=== PATIENT | female | born 1990 | race Caucasian/White ===

== ENCOUNTER 2020-12-20 09:37 | Emergency (ER) | payer MEDICAID ==
[~2020-12-20] VITALS: Ht 167.6 cm; Wt 81.8 kg
[~2020-12-20 09:37] MED LIST: CYCL-1 PO; CYCL-394 PO; IBUP-1984 PO; PHEN-786 PO; SULF5DRO LEFTEYE
[2020-12-20] MEDS ORDERED: ESCI5TAB PO (10:20)
[2020-12-20] MEDS ORDERED: HYDR25CA PO (10:20)
[2020-12-20 10:27] LABS: BASOPHILS % (AUTO) 0.8 % (0-1); EOSINOPHILS # (AUTO) 0.1 X10'3 (0-0.9); EOSINOPHILS % (AUTO) 2.1 % (0-6); HEMATOCRIT 38.4 % (35.0-45.0); HEMOGLOBIN 12.9 g/dl (12.0-16.0); LYMPHOCYTES # (AUTO) 2.2 X10'3 (1.1-4.8); LYMPHOCYTES % (AUTO) 39.8 % (21-51); MEAN CORPUSCULAR HEMOGLOBIN 28.2 PG (27.0-31.0); MEAN CORPUSCULAR HGB CONC 33.5 g/dL (33.0-36.5); MEAN CORPUSCULAR VOLUME 84.2 FL (78-98); MEAN PLATELET VOLUME 8.5 FL (7.4-10.4); MONOCYTES # (AUTO) 0.4 X10'3 (0-0.9); MONOCYTES % (AUTO) 7.9 % (2-12); NEUTROPHILS # (AUTO) 2.7 X10'3 (1.8-7.7); NEUTROPHILS % (AUTO) 49.4 % (42-75); PLATELET COUNT 179 X10'3 (140-440); RED BLOOD COUNT 4.56 X10'6 (4.20-5.60); RED CELL DISTRIBUTION WIDTH 13.5 % (11.5-14.5); WHITE BLOOD COUNT 5.4 X10'3 (4.5-11.0)
[2020-12-20 10:41] LABS: ALANINE AMINOTRANSFERASE 63 U/L (12-78); ALBUMIN 3.8 G/DL (3.4-5.0); ALKALINE PHOSPHATASE 59 IU/L (46-116); ANION GAP 10 (8-16); ASPARTATE AMINO TRANSFERASE 33 U/L (10-37); BILIRUBIN,TOTAL 0.2 MG/DL (0.1-1.0); BLOOD UREA NITROGEN 16 MG/DL (7-18); BUN/CREATININE RATIO 12.2 (6.6-38.0); CALCIUM 9.3 MG/DL (8.5-10.1); CHLORIDE 108 MMOL/L (99-107); CREATININE 1.31 MG/DL (0.40-0.90); GLUCOSE 103 MG/DL (70-104); LIPASE 245 U/L (73-393); POTASSIUM 3.8 MMOL/L (3.5-5.1); SODIUM 144 MMOL/L (135-145); TOTAL CARBON DIOXIDE 26.1 MMOL/L (24-32); TOTAL PROTEIN 7.7 G/DL (6.4-8.2); eGFR 47 ML/MIN
[2020-12-20 10:43] LABS: CLARITY,URINE CLOUDY (Clear); COLOR,URINE YELLOW (Yellow); GLUCOSE, URINE NEGATIVE (Neg); KETONES,URINE NEGATIVE (Neg); LEUKOCYTE ESTERASE ,URINE NEGATIVE (Neg); NITRITES, URINE NEGATIVE (Neg); OCCULT BLOOD,URINE NEGATIVE (Neg); PROTEIN,URINE NEGATIVE (Neg); UA COLLECTION TYPE CLN CATCH MIDSTREAM
[2020-12-20 10:51] LABS: URINE HCG NEGATIVE (NEG)
[2020-12-20 11:04] LABS: MUCUS STRANDS MODERATE /LPF (Neg); SQUAMOUS EPITHELIAL CELL,UR MANY /LPF (FEW)
[2020-12-20 11:05] LABS: BACTERIA,URINE 2+ /HPF (Neg); RBC,URINE 0-2 /HPF (0-2); WBC,URINE 0-4 /HPF (0-4)
[2020-12-20 11:09] LABS: HCG SERUM QL NEGATIVE
[2020-12-20 11:25] VITALS: BP 124/82
[2020-12-20] MEDS ORDERED: albuterol 2.5 MG/3 ML nebule NEB ONE (11:50)
== END 2020-12-20 12:42 | disposition home or self-care (01) ==
LOC: ER 09:38
DX: R10.31 Right lower quadrant pain (principal); R10.32 Left lower quadrant pain; G89.29 Other chronic pain; Z87.440 Personal history of urinary (tract) infections; Z79.899 Other long term (current) drug therapy
CPT/HCPCS: 36415; 74176; 80053; 81001; 81025; 83690; 84703; 85025; 99284

== ENCOUNTER → 2021-02-21 | Emergency (ER) | payer SELFPAY ==
[~2021-02-21] VITALS: Ht 167.6 cm; Wt 76.6 kg
[~2021-02-21] MED LIST changes: -CYCL-1 PO; -CYCL-394 PO; +ESCI5TAB PO; +HYDR25CA PO; -IBUP-1984 PO; -PHEN-786 PO; -SULF5DRO LEFTEYE
[2021-02-21 11:56] VITALS: BP 126/81
== END | disposition home or self-care (01) ==
LOC: ER 11:31
DX: S83.92XA Sprain of unspecified site of left knee, initial encounter (principal); M25.562 Pain in left knee; R53.1 Weakness; G89.29 Other chronic pain; F41.9 Anxiety disorder, unspecified; F32.9 Major depressive disorder, single episode, unspecified; Z87.440 Personal history of urinary (tract) infections; Z98.890 Other specified postprocedural states; Z79.899 Other long term (current) drug therapy; W19.XXXA Unspecified fall, initial encounter; Y93.89 Activity, other specified; Y92.89 Other specified places as the place of occurrence of the external cause; Y99.8 Other external cause status
CPT/HCPCS: 29505; 73564; 99283

== ENCOUNTER 2021-08-05 09:25 | Inpatient (IN) | payer MEDICAID, OTHER ==
[~2021-08-05] VITALS: Ht 167.6 cm; Wt 68.2 kg
[2021-08-05] MEDS ORDERED: ibuprofen tablet 400 MG TABLET PO ONE (12:10)
[2021-08-05] MEDS ORDERED: acetaminophen 325mg tablet PO ONE (12:10)
[2021-08-05] MEDS ORDERED: normal saline 1000ML IV soln IVB ONE ×2 (12:20)
[2021-08-05 12:35] LABS: BASOPHILS % (AUTO) 0.2 % (0-1); EOSINOPHILS % (AUTO) 0 % (0-6); HEMATOCRIT 37.4 % (35.0-45.0); HEMOGLOBIN 12.6 g/dl (12.0-16.0); LYMPHOCYTES # (AUTO) 0.7 X10'3 (1.1-4.8); LYMPHOCYTES % (AUTO) 6.4 % (21-51); MEAN CORPUSCULAR HEMOGLOBIN 27.1 PG (27.0-31.0); MEAN CORPUSCULAR HGB CONC 33.8 g/dL (33.0-36.5); MEAN PLATELET VOLUME 8.7 FL (7.4-10.4); MONOCYTES # (AUTO) 0.9 X10'3 (0-0.9); MONOCYTES % (AUTO) 8.5 % (2-12); NEUTROPHILS # (AUTO) 9.5 X10'3 (1.8-7.7); NEUTROPHILS % (AUTO) 84.9 % (42-75); PLATELET COUNT 195 X10'3 (140-440); RED BLOOD COUNT 4.67 X10'6 (4.20-5.60); RED CELL DISTRIBUTION WIDTH 14.2 % (11.5-14.5); WHITE BLOOD COUNT 11.1 X10'3 (4.5-11.0)
[2021-08-05 12:54] LABS: ALANINE AMINOTRANSFERASE 79 U/L (12-78); ALBUMIN 3.7 G/DL (3.4-5.0); ALBUMIN/GLOBULIN RATIO 0.7 (1.1-1.5); ALKALINE PHOSPHATASE 159 IU/L (46-116); ANION GAP 12 (8-16); ASPARTATE AMINO TRANSFERASE 32 U/L (10-37); BILIRUBIN,TOTAL 1.4 MG/DL (0.1-1.0); BLOOD UREA NITROGEN 9 MG/DL (7-18); BUN/CREATININE RATIO 7.2 (6.6-38.0); CALCIUM 8.8 MG/DL (8.5-10.1); CHLORIDE 97 MMOL/L (99-107); CREATININE 1.25 MG/DL (0.40-0.90); GLUCOSE 102 MG/DL (70-104); POTASSIUM 3.3 MMOL/L (3.5-5.1); SODIUM 134 MMOL/L (135-145); TOTAL CARBON DIOXIDE 24.9 MMOL/L (24-32); TOTAL PROTEIN 8.8 G/DL (6.4-8.2); eGFR 50 ML/MIN
[2021-08-05 13:27] LABS: HCG SERUM QL NEGATIVE
[2021-08-05] MEDS ORDERED: CIPR-202 PO (14:13)
[2021-08-05] MEDS ORDERED: CefTRIAXone 2gm/D5W 50ml BAG 50 ML IV ONE (14:15)
[2021-08-05 14:31] LABS: CLARITY,URINE CLOUDY (Clear); COLOR,URINE DARK YELLOW (Yellow); GLUCOSE, URINE NEGATIVE (Neg); KETONES,URINE NEGATIVE (Neg); LEUKOCYTE ESTERASE ,URINE LARGE (Neg); NITRITES, URINE POSITIVE (Neg); OCCULT BLOOD,URINE LARGE (Neg); PROTEIN,URINE 30 mg/dl (Neg); UA COLLECTION TYPE CLN CATCH MIDSTREAM; UROBILINOGEN,URINE >=8.0 E.U/dL (0.2-1.0)
[2021-08-05 14:35] LABS: BACTERIA,URINE 4+ /HPF (Neg); MUCUS STRANDS NONE SEEN /LPF (Neg); RBC,URINE 20-50 /HPF (0-2); SQUAMOUS EPITHELIAL CELL,UR FEW /LPF (FEW); WBC CLUMPS,URINE MODERATE /HPF (NEGATIVE); WBC,URINE TNTC /HPF (0-4)
[2021-08-05] MEDS ORDERED: mag hydrox/Alum hydrox/simeth 30ml oral suspension PO PRN (16:05)
[2021-08-05] MEDS ORDERED: HYDROcodone/acetaminophen 5mg/325mg tablet PO PRN (16:05)
[2021-08-05] MEDS ORDERED: acetaminophen 325mg tablet PO PRN (16:05)
[2021-08-05] MEDS ORDERED: ondansetron/PF 4mg/2ml inj IV PRN (16:05)
[2021-08-05] MEDS ORDERED: metoclopramide 5 mg/ml inj IV PRN (16:05)
[2021-08-05] MEDS ORDERED: magnesium hydroxide 30ml (MOM) UD suspension PO PRN (16:05)
[2021-08-05] MEDS ORDERED: morphine 2 MG/ML inj. syringe IV PRN ×2 (16:05)
[2021-08-05] MEDS ORDERED: HYDROcodone/acetaminophen 10/325mg tab PO PRN (16:05)
[2021-08-05] MEDS: acetaminophen 325mg tablet PO PRN ×2 (18:59→20:22)
[2021-08-05] MEDS: normal saline 1000ml 1,000 ML IV SCH (19:00)
[2021-08-05] MEDS: docusate sod 100mg capsule PO SCH ×2 (20:00→20:22)
[2021-08-05] MEDS ORDERED: ketorolac tromethamine 15mg/ml inj. IV ONE (20:40)
--- NOTE | 2021-08-06 00:50 | NUR ---
ordered ekg due to pt's elevated heart rate
--- NOTE | 2021-08-06 01:16 | NUR ---
CALLED DR MATHUR CONCERNING PT'S ELEVATED HEART RATE. DR MATHUR WILL PUT IN A TOX SCREEN
[2021-08-06] MEDS ORDERED: atenolol 25mg tablet PO ONE (01:20)
[2021-08-06] MEDS ORDERED: ALPRAZolam 0.25mg tablet PO ONE (01:20)
[2021-08-06] MEDS: acetaminophen 325mg tablet PO PRN (01:42)
--- NOTE | 2021-08-06 01:52 | NUR ---
pt now febrile at 101.7. given tylenol. will reevaluate
[2021-08-06] MEDS: normal saline 1000ml 1,000 ML IV SCH (02:02)
--- NOTE | 2021-08-06 03:02 | NUR ---
PT SLEEPING COMFORTABLY. EASILY AWAKEN WHEN I WALK IN ROOM. HEART RATE IS BEGINNING TO SLOW DOWN S/P MEDICATION. WILL CONTINUE TO MONITOR BP
[2021-08-06] MEDS: docusate sod 100mg capsule PO SCH (07:22)
[2021-08-06] MEDS ORDERED: CefTRIAXone/D5W-Rocephin 1gm 50 ML IV SCH (08:00)
[2021-08-06 08:44] VITALS: BP 96/43
[2021-08-06 08:53] LABS: BASOPHILS % (AUTO) 0.1 % (0-1); EOSINOPHILS % (AUTO) 0.1 % (0-6); HEMATOCRIT 27.4 % (35.0-45.0); LYMPHOCYTES # (AUTO) 0.8 X10'3 (1.1-4.8); LYMPHOCYTES % (AUTO) 8.7 % (21-51); MEAN CORPUSCULAR HEMOGLOBIN 26.6 PG (27.0-31.0); MEAN CORPUSCULAR VOLUME 80.5 FL (78-98); MEAN PLATELET VOLUME 9.1 FL (7.4-10.4); MONOCYTES # (AUTO) 1.2 X10'3 (0-0.9); MONOCYTES % (AUTO) 12.1 % (2-12); NEUTROPHILS # (AUTO) 7.6 X10'3 (1.8-7.7); PLATELET COUNT 123 X10'3 (140-440); RED CELL DISTRIBUTION WIDTH 14.8 % (11.5-14.5); WHITE BLOOD COUNT 9.7 X10'3 (4.5-11.0)
[2021-08-06 08:57] LABS: URINE AMPHETAMINE SCREEN NEGATIVE (Neg); URINE BARBITUATE SCREEN NEGATIVE (Neg); URINE BENZODIAZEPINES SCREEN POSITIVE (Neg); URINE CANNABINOID SCREEN NEGATIVE (Neg); URINE COCAINE SCREEN NEGATIVE (Neg); URINE METHADONE SCREEN NEGATIVE (Neg); URINE OPIATE SCREEN NEGATIVE (Neg); URINE PHENCYCLIDINE SCREEN NEGATIVE (Neg)
[2021-08-06 09:02] LABS: BLOOD UREA NITROGEN 9 MG/DL (7-18); BUN/CREATININE RATIO 9.1 (6.6-38.0); CHLORIDE 107 MMOL/L (99-107); CREATININE 0.99 MG/DL (0.40-0.90); GLUCOSE 103 MG/DL (70-104); POTASSIUM 3.4 MMOL/L (3.5-5.1); SODIUM 138 MMOL/L (135-145); eGFR 65 ML/MIN
[2021-08-06 09:04] LABS: ALBUMIN 2.3 G/DL (3.4-5.0); ANION GAP 10 (8-16); CALCIUM 7.6 MG/DL (8.5-10.1)
[2021-08-06] MEDS ORDERED: LEVO500T90 PO (09:11)
--- NOTE | 2021-08-08 16:25 | NUR ---
PT WAS DC ON 08/06. DC PAPERWORK AND RX FOUND ON THE CLIP BOARD. ATTEMPTED TO CALL PT, UNABLE TO LEAVE A MSG DO TO VOICE MAIL HAD NOT BEEN SET UP ON PT'S PHONE.
== END 2021-08-06 09:03 | disposition home or self-care (01) | DRG 720 ==
LOC: ER 09:26 → ED HOLD 16:10
PROVIDERS: ADMIT Internal Medicine; ATTEND Internal Medicine
DX: A41.9 Sepsis, unspecified organism (principal); N17.9 Acute kidney failure, unspecified; D64.9 Anemia, unspecified; B96.89 Other specified bacterial agents as the cause of diseases classified elsewhere; N10 Acute pyelonephritis; Z20.822 Contact with and (suspected) exposure to COVID-19; F17.200 Nicotine dependence, unspecified, uncomplicated; F32.A Depression, unspecified; F41.9 Anxiety disorder, unspecified; G89.29 Other chronic pain; Z79.899 Other long term (current) drug therapy
CPT/HCPCS: 36415; 71045; 80048; 80053; 80305; 81001; 83605; 84145; 84703; 85025; 87040; 87077; 87088; 87186; 87635; 93005; 96361; 96365; 96366; 99285; C9803; G0378; J0696; J1885; J7030

== ENCOUNTER 2023-02-26 10:19 | Emergency (ER) | payer MEDICAID ==
[~2023-02-26] VITALS: Ht 167.6 cm; Wt 75.0 kg
[2023-02-26 11:03] LABS: ALANINE AMINOTRANSFERASE 39 U/L (12-78); ALBUMIN 4.1 G/DL (3.4-5.0); ALBUMIN/GLOBULIN RATIO 1.2 (1.1-1.5); ALKALINE PHOSPHATASE 71 IU/L (46-116); ANION GAP 9 (8-16); ASPARTATE AMINO TRANSFERASE 22 U/L (10-37); BILIRUBIN,TOTAL 0.4 MG/DL (0.1-1.0); BLOOD UREA NITROGEN 17 MG/DL (7-18); BUN/CREATININE RATIO 15.5 (10.0-20.0); CALCIUM 8.5 MG/DL (8.5-10.1); CHLORIDE 103 MMOL/L (99-107); GLUCOSE 122 MG/DL (70-104); POTASSIUM 3.6 MMOL/L (3.5-5.1); SODIUM 137 MMOL/L (135-145); TOTAL CARBON DIOXIDE 24.8 MMOL/L (24-32); TOTAL PROTEIN 7.5 G/DL (6.4-8.2); eGFR 57 ML/MIN
[2023-02-26 11:14] LABS: MAGNESIUM 2.1 MG/DL (1.5-2.4)
[2023-02-26 11:24] LABS: BASOPHILS % (AUTO) 0.6 % (0-1); EOSINOPHILS # (AUTO) 0.1 X10'3 (0-0.9); EOSINOPHILS % (AUTO) 1.1 % (0-6); HEMATOCRIT 34.4 % (35.0-45.0); LYMPHOCYTES # (AUTO) 2.1 X10'3 (1.1-4.8); MEAN CORPUSCULAR HEMOGLOBIN 23.7 PG (27.0-31.0); MEAN CORPUSCULAR VOLUME 74.3 FL (78-98); MEAN PLATELET VOLUME 8.8 FL (7.4-10.4); MONOCYTES # (AUTO) 0.4 X10'3 (0-0.9); MONOCYTES % (AUTO) 6.8 % (2-12); NEUTROPHILS # (AUTO) 2.7 X10'3 (1.8-7.7); NEUTROPHILS % (AUTO) 51.5 % (42-75); PLATELET COUNT 203 X10'3 (140-440); RED BLOOD COUNT 4.63 X10'6 (4.20-5.60); RED CELL DISTRIBUTION WIDTH 21.3 % (11.5-14.5); WHITE BLOOD COUNT 5.2 X10'3 (4.5-11.0)
[2023-02-26 12:50] LABS: PLATELET ESTIMATE NORMAL
[2023-02-26 12:51] LABS: ANISOCYTOSIS 3+; ELLIPTOCYTES FEW; MICROCYTOSIS 1+
[2023-02-26 12:57] VITALS: BP 11/92
== END 2023-02-26 12:59 | disposition home or self-care (01) ==
LOC: ER 10:19
DX: R07.89 Other chest pain (principal); G89.29 Other chronic pain; F41.9 Anxiety disorder, unspecified; F32.9 Major depressive disorder, single episode, unspecified; Z98.890 Other specified postprocedural states; Z79.899 Other long term (current) drug therapy
CPT/HCPCS: 36415; 71045; 80053; 83735; 83880; 84484; 85008; 85025; 93005; 99285

== ENCOUNTER 2023-08-13 10:54 | Emergency (ER) | payer MEDICAID ==
[~2023-08-13] VITALS: Ht 167.6 cm; Wt 77.7 kg
[2023-08-13] MEDS ORDERED: ondansetron/PF 4mg/2ml inj IV ONE (14:35)
[2023-08-13] MEDS ORDERED: morphine 2 MG/ML inj. syringe IV PRN (14:35)
[2023-08-13 15:01] VITALS: BP 116/69; PULSE 97; RESP 15; TEMP 98.1; O2SAT 99
[2023-08-13] MEDS ORDERED: iohexol 300mg/ml 100ml inj. ONE (15:01)
--- NOTE | 2023-08-13 15:03 | NUR ---
PT REFUSES IV AT THIS TIME. RN WILL NOTIFY DR PAUL.
--- NOTE | 2023-08-13 15:08 | NUR ---
RN COMPLETED OFFICIAL ASSESSMENT AT THIS TIME FOR LEARNING PURPOSES OF OCTAVIO MICHAELS RN.
--- NOTE | 2023-08-13 15:15 | NUR ---
PT REFUSES ALL TESTS AT THIS TIME BUT AGREES TO A URINE TEST.
[2023-08-13 15:19] LABS: BASOPHILS % (AUTO) 0.7 % (0-1); EOSINOPHILS # (AUTO) 0.1 X10'3 (0-0.9); EOSINOPHILS % (AUTO) 0.9 % (0-6); HEMOGLOBIN 10.4 g/dl (12.0-16.0); LYMPHOCYTES # (AUTO) 2.5 X10'3 (1.1-4.8); MEAN CORPUSCULAR HEMOGLOBIN 22.5 PG (27.0-31.0); MEAN CORPUSCULAR HGB CONC 31.5 g/dL (33.0-36.5); MEAN CORPUSCULAR VOLUME 71.6 FL (78-98); MEAN PLATELET VOLUME 8.7 FL (7.4-10.4); MONOCYTES # (AUTO) 0.5 X10'3 (0-0.9); MONOCYTES % (AUTO) 9.2 % (2-12); NEUTROPHILS # (AUTO) 2.4 X10'3 (1.8-7.7); NEUTROPHILS % (AUTO) 44.2 % (42-75); PLATELET COUNT 222 X10'3 (140-440); RED BLOOD COUNT 4.61 X10'6 (4.20-5.60); RED CELL DISTRIBUTION WIDTH 15.6 % (11.5-14.5); WHITE BLOOD COUNT 5.5 X10'3 (4.5-11.0)
[2023-08-13 15:37] LABS: ALANINE AMINOTRANSFERASE 15 U/L (12-78); ALBUMIN/GLOBULIN RATIO 1.1 (1.1-1.5); ALKALINE PHOSPHATASE 63 IU/L (46-116); ANION GAP 8 (8-16); ASPARTATE AMINO TRANSFERASE 16 U/L (10-37); BILIRUBIN,TOTAL 0.4 MG/DL (0.1-1.0); BLOOD UREA NITROGEN 8 MG/DL (7-18); BUN/CREATININE RATIO 7.8 (10.0-20.0); CHLORIDE 103 MMOL/L (99-107); CREATININE 1.02 MG/DL (0.40-0.90); GLUCOSE 93 MG/DL (70-104); LIPASE 55 U/L (16-77); POTASSIUM 3.6 MMOL/L (3.5-5.1); SODIUM 138 MMOL/L (135-145); TOTAL CARBON DIOXIDE 27.1 MMOL/L (24-32); TOTAL PROTEIN 7.8 G/DL (6.4-8.2); eCRCL 73 ML/MIN; eGFR 62 ML/MIN
--- NOTE | 2023-08-13 15:55 | NUR ---
URINE SENT TO LAB. PT AGREED TO HAVE URINE TESTED. PER DR PAUL PT IS NOW AGREEING TO IV. RN WILL PLACE IV ONCE US COMPLETED. US AT BEDSIDE AT THIS TIME.
[2023-08-13 16:09] LABS: BILIRUBIN,URINE NEGATIVE (Neg); CLARITY,URINE SLIGHTLY CLOUDY (Clear); COLOR,URINE YELLOW (Yellow); GLUCOSE, URINE NEGATIVE (Neg); KETONES,URINE NEGATIVE (Neg); LEUKOCYTE ESTERASE ,URINE NEGATIVE (Neg); NITRITES, URINE NEGATIVE (Neg); OCCULT BLOOD,URINE NEGATIVE (Neg); PROTEIN,URINE NEGATIVE (Neg); UROBILINOGEN,URINE 0.2 E.U/dL (0.2-1.0)
[2023-08-13 16:14] LABS: UA COLLECTION TYPE CLN CATCH MIDSTREAM
[2023-08-13 16:15] LABS: BACTERIA,URINE FEW /HPF (Neg); RBC,URINE 0-2 /HPF (0-2); SQUAMOUS EPITHELIAL CELL,UR FEW /LPF (FEW); WBC,URINE 0-4 /HPF (0-4)
[2023-08-13 16:32] LABS: URINE HCG NEGATIVE (NEG)
--- NOTE | 2023-08-13 16:35 | NUR ---
PT TAKEN TO CT
== END 2023-08-13 18:33 | disposition home or self-care (01) ==
LOC: ER 10:55
DX: N83.291 Other ovarian cyst, right side (principal); F31.9 Bipolar disorder, unspecified
CPT/HCPCS: 36415; 74177; 76830; 76856; 80053; 81001; 81025; 83690; 85025; 86885; 86900; 86901; 93976; 99285; J3490; Q9967

== ENCOUNTER 2024-04-05 06:12 | Emergency (ER) | payer MEDICAID ==
[~2024-04-05] VITALS: Ht 167.6 cm; Wt 71.4 kg
[2024-04-05 07:06] VITALS: BP 116/75; PULSE 117; RESP 18; TEMP 97.9; O2SAT 95
== END 2024-04-05 09:24 | disposition left against medical advice (07) ==
LOC: ER 06:12
DX: L50.9 Urticaria, unspecified (principal); Z53.21 Procedure and treatment not carried out due to patient leaving prior to being seen by health care provider